=== PATIENT | female | born 1995 | race Caucasian/White ===

== ENCOUNTER → 2021-01-25 | Outpatient (CLI) | payer BC, SELFPAY ==
[2021-01-28 03:07] LABS: Chlamydia By Nucleic Acid AMP Negative (Negative)
[2021-01-28 14:58] LABS: Gonococcus By Nucleic Acid AMP Negative (Negative)
== END | disposition home or self-care (01) ==
LOC: LABSPEC 13:38
PROVIDERS: Visit Provider Obstetrics & Gynecology
DX: Z11.3 Encounter for screening for infections with a predominantly sexual mode of transmission (principal)
CPT/HCPCS: 87491; 87591

== ENCOUNTER → 2021-02-23 08:53 | Outpatient (CLI) | payer BC, SELFPAY ==
[2021-02-23 14:01] LABS: Absolute Lymphocyte Count 2.83 X10^3/uL (0.83-4.51); Basophil# 0.04 X10^3/uL; Basophil% 0.4 % (0-1); Eosinophil# 0.21 X10^3/uL; Eosinophils% 2.2 % (0-5); Hematocrit 38.6 % (37-47); Lymphocyte # 2.83 X10^3/ul (0.83-4.51); Lymphocyte % 29.8 % (19-41); Mean Corp Hgb Conc 31.1 g/dL (32-36); Mean Corpuscular Hgb 24.9 pg (27.0-32.0); Mean Corpuscular Volume 80.1 fL (81-99); Mean Platelet Vol. 9.5 fl (6.2-12.0); Monocyte# 0.35 X10^3/uL; Monocyte% 3.7 % (0-10); NRBC Flagged by Analyzer 0 % (0-5); Neutrophil # 6.04 X10^3/uL (2.7-7.7); Neutrophil % 63.6 % (47-70); Platelet Count 289 K/mm3 (150-450); RBC Distribution Width CV 13.8 % (11.6-14.6); RBC Distribution Width SD 39.9 fl (35.1-43.9); Red Blood Count 4.82 M/mm3 (4.2-5.4); White Blood Count 9.5 K/mm3 (4.4-11.0)
[2021-02-23 14:04] LABS: Glucose Challenge Gest 1H 50g 126 mg/dL (70-140)
[2021-02-23 14:52] LABS: HIV - WCH Non-Reactive (Nonreactive); Hepatitis B Surface Antigen Non-Reactive (Nonreactive); Hepatitis C Antibody Non-Reactive (Nonreactive); Rubella IgG Reactive (Nonreactive); Syphilis Antibodies Non-reactive
[2021-02-23 17:21] LABS: Ferritin 109 ng/mL (8-252)
== END ==
PROVIDERS: Visit Provider Obstetrics & Gynecology
DX: O99.011 Anemia complicating pregnancy, first trimester (principal); D64.9 Anemia, unspecified; Z3A.00 Weeks of gestation of pregnancy not specified
CPT/HCPCS: 36415; 82728; 82950; 85025; 86703; 86762; 86780; 86803; 87086; 87088; 87340

== ENCOUNTER 2021-06-01 18:25 | Outpatient (CLI) | payer BC, MEDICAID, SELFPAY ==
[2021-06-01 18:34] VITALS: BMI 48.6
[2021-06-01 18:41] VITALS: BP 122/71; PULSE 107
[2021-06-01 18:55] VITALS: BP 125/73; PULSE 106
--- NOTE | 2021-06-02 08:07 | OB.TRI.NOTE ---
HPI - General HPI Narrative MONTANA CASON, is a 25 F who presents asymptomatic with concerns about at home blood pressures PFSH PFSH Home Medications aspirin [Baby Aspirin] 81 mg PO DAILY 06/01/21 [History Last Taken 05/31/21 20:00] [id number] [] 1 tab PO DAILY 06/01/21 [History Last Taken 05/31/21 20:00] Allergy/AdvReac Type Severity Reaction Status Date / Time No Known Allergies Allergy Verified 06/01/21 18:35 NST FHR Rate Baby A Baseline: 150 Variability:: Moderate Accelerations:: 15 x 15 Decelerations:: None NST Reactive:: Yes Uterine Activity:: quiet Assessment & Plan (1) : PLAN: Patient arrives with concerns of at home blood pressures. Here blood pressures within normal limits, patient asymptomatic. heart tones reassuring. Okay to discharge home and follow-up scheduled appointments
== END 2021-06-01 19:05 | disposition home or self-care (01) ==
LOC: WPOUT 18:33 → WP 18:34
PROVIDERS: Visit Provider Obstetrics & Gynecology
DX: O26.899 Other specified pregnancy related conditions, unspecified trimester (principal); Z3A.00 Weeks of gestation of pregnancy not specified; Z79.82 Long term (current) use of aspirin
CPT/HCPCS: 59050; 99218; G0378

== ENCOUNTER → 2021-06-20 16:59 | Outpatient (CLI) | payer BC, MEDICAID, SELFPAY ==
[2021-06-20 17:29] LABS: Hematocrit 33.5 % (37-47); Hemoglobin 10.7 g/dL (12.0-15.0); Mean Corp Hgb Conc 31.9 g/dL (32-36); Mean Corpuscular Hgb 25.7 pg (27.0-32.0); Mean Corpuscular Volume 80.5 fL (81-99); Mean Platelet Vol. 9.7 fl (6.2-12.0); Platelet Count 280 K/mm3 (150-450); Red Blood Count 4.16 M/mm3 (4.2-5.4); White Blood Count 14.4 K/mm3 (4.4-11.0)
[2021-06-20 17:36] LABS: Glucose Challenge Gest 1H 50g 162 mg/dL (70-140)
== END ==
PROVIDERS: Visit Provider Obstetrics & Gynecology
DX: Z34.82 Encounter for supervision of other normal pregnancy, second trimester (principal)
CPT/HCPCS: 36415; 82950; 85027

== ENCOUNTER → 2021-06-28 07:07 | Outpatient (CLI) | payer BC, MEDICAID, SELFPAY ==
[2021-06-28 08:09] LABS: Glucose GTT-Gestation. Fasting 99 mg/dL (<105)
[2021-06-28 09:09] LABS: Glucose GTT-Gestational 1 Hr 185 mg/dL (<190)
[2021-06-28 10:25] LABS: Glucose GTT-Gestational 2 Hr 170 mg/dL (<165)
[2021-06-28 12:00] LABS: Glucose GTT-Gestational 3 Hr 160 L (<145)
== END ==
PROVIDERS: Referring Provider Obstetrics & Gynecology; Visit Provider Obstetrics & Gynecology
DX: O24.912 Unspecified diabetes mellitus in pregnancy, second trimester (principal); Z3A.00 Weeks of gestation of pregnancy not specified
CPT/HCPCS: 36415; 82951; 82952

== ENCOUNTER → 2021-07-31 | Outpatient (CLI) | payer BC, MEDICAID, SELFPAY | END | disposition home or self-care (01) | LOC: LABSPEC 16:22 | PROVIDERS: Visit Provider Obstetrics & Gynecology | DX: O23.13 Infections of bladder in pregnancy, third trimester (principal); Z3A.00 Weeks of gestation of pregnancy not specified | CPT/HCPCS: 87086; 87088 ==

== ENCOUNTER 2021-08-24 16:26 | Outpatient (CLI) | payer BC, MEDICAID, SELFPAY | END 2021-08-24 23:59 | disposition short-term general hospital (02) | LOC: LABSPEC 16:30 | PROVIDERS: Visit Provider Obstetrics & Gynecology | DX: Z36.85 Encounter for antenatal screening for Streptococcus B (principal) | CPT/HCPCS: 87081 ==

== ENCOUNTER 2021-09-05 02:45 | Inpatient (IN) | payer BC, MEDICAID, SELFPAY ==
[2021-09-05] VITALS (78 sets, daily range): BP systolic 86–142; BP diastolic 50–95; PULSE 86–136; TEMP 36.1–37.3; O2SAT 82–98; BMI 48.4
[2021-09-05 02:32] LABS: ROM Internal Control Test YES-OK TO RESULT pt. (Internal QC)
[2021-09-05 02:35] LABS: ROM Patient Test POSITIVE (Negative)
[2021-09-05] MEDS: Lactated Ringers 500 ML 999 ML IV ×2 (03:10→15:31)
[2021-09-05 03:11] LABS: Bedside Glucose 112 mg/dL (70-110)
[2021-09-05 03:15] LABS: Absolute Lymphocyte Count 2.52 X10^3/uL (0.83-4.51); Absolute Neutrophil Count 6.8 X10^3/uL (2.0-7.7); Basophil# 0.03 X10^3/uL; Basophil% 0.3 % (0-1); Eosinophil# 0.15 X10^3/uL; Eosinophils% 1.5 % (0-5); Hematocrit 46.5 % (37-47); Hemoglobin 14.8 g/dL (12.0-15.0); Lymphocyte # 2.52 X10^3/ul (0.83-4.51); Lymphocyte % 25.3 % (19-41); Mean Corp Hgb Conc 31.8 g/dL (32-36); Mean Corpuscular Hgb 25.1 pg (27.0-32.0); Mean Corpuscular Volume 78.9 fL (81-99); Monocyte# 0.45 X10^3/uL; Monocyte% 4.5 % (0-10); NRBC Flagged by Analyzer 0 % (0-5); Neutrophil # 6.78 X10^3/uL (2.7-7.7); Platelet Count 173 K/mm3 (150-450); RBC Distribution Width CV 14.3 % (11.6-14.6); RBC Distribution Width SD 40.5 fl (35.1-43.9); Red Blood Count 5.89 M/mm3 (4.2-5.4)
[2021-09-05] MEDS: Lactated Ringers 1,000 ML 50 ML IV (03:41)
[2021-09-05] MEDS: fentaNYL-bupivacaine (epidural) 100 ML BAG EPIDURAL ×4 (04:14→18:30)
[2021-09-05 04:36] LABS: Bedside Glucose 131 mg/dL (70-110)
[2021-09-05 06:00] LABS: Bedside Glucose 115 mg/dL (70-110)
[2021-09-05 06:55] LABS: Bedside Glucose 99 mg/dL (70-110)
[2021-09-05 08:06] LABS: Bedside Glucose 78 mg/dL (70-110)
--- NOTE | 2021-09-05 08:28 | PCM.HP.BLA ---
History and Physical Date of Admission: 09/05/21 HPI: 25-year-old at 38/0 weeks, YOHAN 09/19/2021 by 6-week ultrasound, admitted for spontaneous rupture of membranes. SROM occurred last night around midnight. Reports contractions. Denies vaginal bleeding or decrease movement. Denies headache, vision changes, chest pain or shortness of breath, nausea or vomiting, fevers or chills. 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 G2: 7-week SAB G3 current Medical history: Denies Surgical history: Casanova tooth extraction Allergies: No known drug allergies Medications: Aspirin 81 mg, vitamin Family history: Breast cancer, heart aneurysm, otherwise noncontributory Social history: Denies tobacco, alcohol, drug use Review of systems: Negative otherwise stated above Physical exam Vitals: Blood pressure 96/51, temperature 97.6 ?F, pulse 86, oxygen saturation 96% on room air General: No acute distress HEENT: Normocephalic atraumatic, PERRLA Cardiorespiratory: No increased effort, regular heart rate Abdomen: Gravid, nontender Extremities: Minimal edema Musculoskeletal: Full range of motion and strength 5/5 throughout all extremities Neurologic: Cranial nerves II through XII grossly intact Cervical exam: 4 cm this morning panel: A positive HIV negative Hepatitis B/hepatitis C negative/negative Gonorrhea/chlamydia negative Rubella immune Syphilis negative GBS negative on 08/24 CBC 09/05: WBC 10, hemoglobin/hematocrit 14.8/46.5, platelets 173. Assessment/plan 25-year-old at 38/0 weeks, YOHAN 09/19/2021 by 6-week ultrasound, admitted for spontaneous rupture of membranes. -Admit to labor and delivery. Routine orders -GDM A2. Routine diabetic management in labor. -Epidural placed -Will augment with Pitocin, started this morning as there is no cervical change.
[2021-09-05] MEDS: Lactated Ringers 1,000 ML 200 ML IV ×2 (08:35→13:29)
[2021-09-05 09:06] LABS: Bedside Glucose 83 mg/dL (70-110)
[2021-09-05] MEDS: Oxytocin 30 units/NS 500 ml 30 UNITS/500 ML IV.SOLN IV (09:23)
[2021-09-05 10:11] LABS: Bedside Glucose 83 mg/dL (70-110)
[2021-09-05 11:05] LABS: Bedside Glucose 78 mg/dL (70-110)
[2021-09-05 12:10] LABS: Bedside Glucose 71 mg/dL (70-110)
[2021-09-05 13:15] LABS: Bedside Glucose 74 mg/dL (70-110)
[2021-09-05 14:00] LABS: Bedside Glucose 79 mg/dL (70-110)
[2021-09-05 15:25] LABS: Bedside Glucose 74 mg/dL (70-110)
[2021-09-05] MEDS: Oxytocin 30 units/NS 500 ml 30 UNITS/500 ML IV.SOLN 334 UNITS IV (16:49)
--- NOTE | 2021-09-05 18:31 | OP.PCM_ITS ---
Maternal Data Information Final YOHAN: 09/19/21 Final YOHAN Source: US <20 weeks Vaginal Delivery Maternal Presentation Maternal Presentation: Spontaneous Rupture of Membranes Type of Induction: Pitocin Operative Information Date of Procedure: 09/05/21 Pre-Operative Diagnosis: Arre[place] intrauterine , GDMA2 Post-Operative Diagnosis: [place] intrauterine , GDMA2, Shoulder dystocia, third degree laceration, cervical laceration Surgery / Procedure Performed: Spontaneous Vaginal Delivery Type of Anesthesia: Epidural Estimated Blood Loss: 1000cc Findings Description of Procedure: 25-year-old G3, P1 at 38/4 weeks admitted with spontaneous rupture of membranes. Patient was augmented in labor with Pitocin. Complicated by GDM A2. Progressed through labor. Delivered head to perineum. At which time diagnosis of shoulder dystocia was made. Right anterior shoulder. Patient instructed to stop pushing. Nurses instructed to place patient in Juany positions. Shoulder was released with Juany maneuver. Shoulder dystocia lasting 35 seconds. Baby was placed on maternal chest and was vigorous and moving all extremities. Cord clamped and cut. Diagnosis of third-degree laceration was made. Rectal exam completed noting intact anal sphincter and rectal mucosa. Superficial transverse perineal muscles reapproximated with 2 [id number] stitches. Vaginal apex identified and third-degree laceration was repaired in usual fashion. Vaginal mucosa noted to be very friable with oozing. Hemostatic with suture. At that time placental extraction was completed. Cord evulsed, requiring manual extraction of placenta. Bedside ultrasound was completed after extraction noting a thin endometrial stripe with no blood flow. Bleeding again was noted. Further examination of laceration repair noted vaginal apex to originate higher than repair had been started. Right angle retractor was held by bedside nurse for visualization apex identified and reapproximated. Bleeding continued to be brisk. Difficult visualization at that time. Repeat rectal exam again noting intact anal sphincter and rectal mucosa. Discussed with the patient that at that time there was possibility of needing to go back to the operating room if visualization continue to be poor. Amenable to plan and made aware of additional physician assistance. Assistance of Dr. Sahil Brasher was requested. Upon his arrival to the room Alina retractor was utilized for further visualization. Noting posterior 6:00 cervical laceration. This was reapproximated with 2 [id number] stitches. [place] of the vaginal laceration was also reapproximated with [id number] stitches. Continued thorough examination of both repaired cervical and vaginal lacerations was completed using a variety of retractors including a large speculum as well as both the right angle and [place] retractors. At that time it was determined that the vaginal and cervical lacerations were hemostatic. Because of assistance from another physician with visualization and examination was able to not require visit to the operating room. Discussed shoulder dystocia and extensive vaginal and cervical repair with patient, her and mother. All questions answered. Findings and plan reviewed with bedside nurses and charge nurse. Will leave Spears catheter in place along with epidural for 2 hours, keep n.p.o. during this time, as a precautionary measure in case the patient requires further repair in the operating room. 2 g Ancef IV to be given for manual extraction of the placenta and extensive repair. We will plan for CBC in the morning, as well as fasting glucose. Infant A Gender: Male (1 minute): 8 (5 minute): 9
[2021-09-05] MEDS: Acetaminophen 500 MG Tablet 1000 MG PO (18:50)
[2021-09-05 19:05] LABS: Bedside Glucose 83 mg/dL (70-110)
[2021-09-05] MEDS: Cefazolin 2 GM in 0.9% Normal Saline 100 ML IV (19:35)
[2021-09-05] MEDS: 0.9% Saline Lock 10 ML Syringe IV (20:32)
--- NOTE | 2021-09-05 21:33 | NURSING ---
Removed pt's epidural catheter - blue tip intact.
[2021-09-06] MEDS: Ibuprofen 600 MG Tablet PO ×3 (00:25→14:51)
[2021-09-06 00:55] VITALS: BP 142/79; PULSE 106; RESP 18; TEMP 36.4; O2SAT 96
[2021-09-06] MEDS: Acetaminophen 500 MG Tablet 1000 MG PO (02:48)
[2021-09-06 03:30] VITALS: BP 124/70; PULSE 91; RESP 18; TEMP 36; O2SAT 95
[2021-09-06 06:21] LABS: Bedside Glucose 114 mg/dL (70-110)
[2021-09-06 07:04] LABS: Hematocrit 28.4 % (37-47); Hemoglobin 9.1 g/dL (12.0-15.0); Mean Corpuscular Hgb 25.3 pg (27.0-32.0); Mean Corpuscular Volume 79.1 fL (81-99); Mean Platelet Vol. 9.8 fl (6.2-12.0); Platelet Count 215 K/mm3 (150-450); RBC Distribution Width CV 14.1 % (11.6-14.6); RBC Distribution Width SD 40.8 fl (35.1-43.9); Red Blood Count 3.59 M/mm3 (4.2-5.4); White Blood Count 14.5 K/mm3 (4.4-11.0)
--- NOTE | 2021-09-06 07:33 | PN.OBGYN_ITS ---
Subjective Subjective Reports painful cramping intermittently. Otherwise minimal perineal soreness. She is out of bed, ambulating and voiding without difficulty. She is and feeds well. Denies heavy lochia. Objective Data Objective Data Vital Signs: Vital Signs Temp Pulse Resp BP Pulse Ox 96.8 F L 91 18 124/70 H 95 09/06/21 03:30 09/06/21 03:30 09/06/21 03:30 09/06/21 03:30 09/06/21 03:30 Oxygen Delivery Method Room Air Weight: 136.259 kg Body Mass Index (BMI) 48.4 Intake & Output: Intake and Output for Last 24 Hours 09/04/21 09/05/21 09/06/21 23:59 23:59 23:59 Intake Total 4025.90 / 4025.90 Output Total 2410 / 2410 450 / 450 Balance 1615.90 / 1615.90 -450 / -450 Lab / Micro Data Result Diagrams: 09/06/21 06:54 Labs: Laboratory Results - last 24 hr 09/05/21 07:55: POC Glucose 78 09/05/21 09:01: POC Glucose 83 09/05/21 10:05: POC Glucose 83 09/05/21 11:00: POC Glucose 78 09/05/21 12:03: POC Glucose 71 09/05/21 13:09: POC Glucose 74 09/05/21 13:52: POC Glucose 79 09/05/21 15:17: POC Glucose 74 09/05/21 18:35: POC Glucose 83 09/06/21 06:14: POC Glucose 114 H 09/06/21 06:54: WBC 14.5 H, RBC 3.59 L, Hgb 9.1 L, Hct 28.4 L, MCV 79.1 L, MCH 25.3 L, MCHC 32.0, RDW Std Deviation 40.8, RDW Coeff of Meghan 14.1, Plt Count 215, MPV 9.8 Micro: Microbiology 09/05/21 02:56 Nasal Secretion SARS-CoV-2 Antigen (Rapid) - Final Physical Exam Const alert, oriented x3, no apparent distress and well nourished Resp normal respiratory effort and normal air movement Cardio regular rate, regular rhythm, S1 normal heart sound and S2 normal heart sound Narrative: minimal vulvar edema, perineum well approximated Uterus Palpation: uterus fundus firm and other OB fundus nontender Extremity no calf tenderness Neuro oriented x3 Assessment & Plan (1) (spontaneous vaginal delivery): PLAN: Routine care A positive, HBsAg neg, HCV Ab neg, HIV neg, Rub immune Pt desires d/c home this evening (2) Shoulder dystocia during labor and delivery, delivered: (3) Gestational diabetes: QUALIFIERS: Gestational diabetes mellitus control: insulin- controlled Trimester: third trimester Qualified Code(s): O24.414 - Gestational diabetes mellitus in , insulin controlled PLAN: Fasting blood sugar 114, glucose intolerance Discussed Metformin, pt considering Will need 2h OGTT at 6 weeks
[2021-09-06] MEDS: Senna/Docusate Sodium 1 Tablet PO (08:45)
[2021-09-06 09:07] VITALS: BP 111/73; PULSE 92; RESP 16; TEMP 36.6; O2SAT 96
--- NOTE | 2021-09-06 11:22 | PCM.DC ---
Discharge Instructions Diet Discharge Diet: No restrictions Activity Discharge Activity: Return to Normal Activity and May Drive May resume sexual activity in: 6-8 weeks Lifting Restrictions: No lifting over 25 pounds for 2-3 Additional Activity Instructions:: Ice packs to perineum. Stool softeners daily. Sitz bath's as needed Dressing / Incision Call your doctor if your incision/area has: Continuous Slow Oozing and Foul Smelling Discharge Call your doctor if you observe: Fever of 101 or Higher, Shortness of breath and Chest pain Follow Up Care Please Follow Up With: Sahil Brasher MD When: Follow-up within 1 week Test Results: Test results from this visit will be discussed in further detail at your follow-up appointment, if applicable. Discharge Plan Admission Admit Date/Time: 09/05/21 02:45 Attending Provider: Ree Brasher Primary Care Provider: Care PhysicianKaren Primary Discharge Orders/Prescriptions Prescriptions: No Action 1 mg Tablet 1 tab PO DAILY RF: 0 Levemir U-100 Insulin 100 unit/mL Solution 20 unit SUBCUT QHS RF: 0
[2021-09-06 12:30] VITALS: BP 129/69; PULSE 94; RESP 18; TEMP 36.2
[2021-09-06 16:03] VITALS: BP 120/66; PULSE 98; RESP 18; TEMP 36.2
[2021-09-06 20:16] VITALS: BP 122/78; PULSE 94; RESP 16; TEMP 36.1
[2021-09-07 02:35] VITALS: BP 141/82; PULSE 105; RESP 18
[2021-09-07] MEDS: Ibuprofen 600 MG Tablet PO ×2 (02:42→12:06)
--- NOTE | 2021-09-07 08:23 | PN.OBGYN_ITS ---
Subjective Subjective No overnight complaints. Pain well controlled. Denies fevers, chills, dizziness, weakness, chest pain, shortness of breath Objective Data Objective Data Vital Signs: Vital Signs Temp Pulse Resp BP Pulse Ox 97 F L 105 H 18 141/82 H 96 09/06/21 20:16 09/07/21 02:35 09/07/21 02:35 09/07/21 02:35 09/06/21 09:07 Oxygen Delivery Method Room Air Weight: 300 lb 6.4 oz Body Mass Index (BMI) 48.4 Intake & Output: Intake and Output for Last 24 Hours 09/05/21 09/06/21 09/07/21 23:59 23:59 23:59 Intake Total 4025.90 / 4025.90 Output Total 2410 / 2410 450 / 450 Balance 1615.90 / 1615.90 -450 / -450 Lab / Micro Data Result Diagrams: 09/06/21 06:54 Micro: Microbiology 09/05/21 02:56 Nasal Secretion SARS-CoV-2 Antigen (Rapid) - Final Physical Exam Const alert, oriented x3, no apparent distress, average body habitus and healthy appearing HEENT normocephalic Head and Scalp: atraumatic Face and Sinus: normal facial exam Eyes PERRL Neck full ROM Resp normal respiratory effort, no retractions and no use of accessory muscles Psych mental status grossly normal, affect normal, speech normal and activity/motor behavior normal Assessment & Plan (1) (spontaneous vaginal delivery): PLAN: day 2. Breast-feeding. Acute on chronic anemia secondary to acute blood loss anemia, asymptomatic and vital signs stable. Continue p.o. iron at home. GDM A, will follow with 2-hour gtt. 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
[2021-09-07 09:15] VITALS: BP 124/75; PULSE 94; RESP 18; TEMP 36.4; O2SAT 95
[2021-09-07 12:27] VITALS: BP 108/64; PULSE 99; RESP 16; TEMP 36.1; O2SAT 95
== END 2021-09-07 13:00 | disposition home or self-care (01) | DRG 768 ==
LOC: WPOUT 02:49 → WP 02:49
PROVIDERS: Admitting Provider Student in an Organized Health Care Education/Training Program; Visit Provider Student in an Organized Health Care Education/Training Program
DX: O24.424 Gestational diabetes mellitus in childbirth, insulin controlled (principal); Z37.0 Single live birth; O71.4 Obstetric high vaginal laceration alone; Z79.4 Long term (current) use of insulin; Z3A.38 38 weeks gestation of pregnancy; O66.0 Obstructed labor due to shoulder dystocia; O70.20 Third degree perineal laceration during delivery, unspecified; O71.3 Obstetric laceration of cervix; Z20.822 Contact with and (suspected) exposure to COVID-19
CPT/HCPCS: 59025; 59050; 76815; 82962; 84112; 85025; 85027; 86850; 86900; 86901; 87426; 99218; J7120; A4216; G0378

== ENCOUNTER → 2022-08-10 | Outpatient (CLI) | payer OTHER, SELFPAY ==
[2022-08-17 18:22] LABS: HPV Reflexed? NOT INDICATED
== END | disposition home or self-care (01) ==
LOC: LABSPEC 14:06
PROVIDERS: Visit Provider Obstetrics & Gynecology
DX: Z12.4 Encounter for screening for malignant neoplasm of cervix (principal)
CPT/HCPCS: 88175; G0145